=== PATIENT | female | born 1950 | race Two or more races ===

== ENCOUNTER 2020-01-19 16:03 | Emergency (ER) | payer SELFPAY ==
[2020-01-19] MEDS: HYDROmorphone 2 MG/ML SDV IVPUSH ONE (17:16)
[2020-01-19] MEDS: Ondansetron 4 MG/2 ML SDV IVPUSH ONE (17:19)
[2020-01-19] MEDS: Sodium Chloride 0.9% 1,000 ML IV SCH (17:27)
[2020-01-19] MEDS: Sodium Chloride 0.9% 10 ML Syringe FLUSH PRN (17:29)
[2020-01-19] MEDS: Iopamidol 755 Mg/ML 100 ML Bottle IV ONE (18:50)
[2020-01-19] MEDS: HYDROmorphone 2 MG/ML SDV IVPUSH STA (18:52)
--- NOTE | 2020-01-19 19:06 | EDM.PDOC ---
ED HPI GENERAL MEDICAL PROBLEM - General Stated Complaint: VAGINIAL ISSUIES Time Seen by Provider: 01/19/20 17:20 Source of Information: Reports: Patient History Limitations: Reports: No Limitations - History of Present Illness INITIAL COMMENTS - FREE TEXT/NARRATIVE: Patient presented to the ED because of severe abdominal pain, nausea but no vomiting. There is no fever or chills. The pain is sharp and cramping, 10/10. She had a vaginal prolapse surgery in [facility] sometime on the first week of December 2019 and 2 days post op she developed severe abdominal pain and nausea. She also mentioned that her urine and stool are mixed together and comes from her vaginal area. She then returned to the ED in [facility] and was evaluated and she was told that her surgery might have been complicated. ED ROS GENERAL - Review of Systems Review Of Systems: See Below Constitutional: Reports: No Symptoms HEENT: Reports: No Symptoms Respiratory: Reports: No Symptoms Cardiovascular: Reports: No Symptoms Endocrine: Reports: No Symptoms GI/Abdominal: Reports: Abdominal Pain : Reports: No Symptoms Musculoskeletal: Reports: No Symptoms Skin: Reports: No Symptoms Neurological: Reports: No Symptoms Psychiatric: Reports: No Symptoms ED EXAM, GI/ABD - Physical Exam Exam: See Below Exam Limited By: No Limitations General Appearance: Alert, No Apparent Distress Ears: Normal External Exam, Normal Canal Nose: Normal Inspection, Normal Mucosa Throat/Mouth: Normal Inspection, Normal Lips, Normal Teeth Head: Atraumatic, Normocephalic Neck: Normal Inspection, Supple, Non-Tender, Full Range of Motion Respiratory/Chest: No Respiratory Distress, Lungs Clear, Normal Breath Sounds Cardiovascular: Normal Peripheral Pulses, Regular Rate, Rhythm, No Edema, No Gallop GI/Abdominal Exam: Normal Bowel Sounds, Soft, Abnormal Bowel Sounds (diffusely tender), Other Back Exam: Normal Inspection, Full Range of Motion Course - Vital Signs Text/Narrative:: Labs/CT abd-pelvis was discussed with patient and her daughter and verbalized full understanding Surgery consult was done with Dr Royal who wants patient to be transferred to [facility] for further evaluation NS 1 L IV bolus Zofran 4 mg IV x1 Dilaudid 1 mg IV x2 doses Last Recorded V/S: Last Vital Signs Temp 36.7 C 01/19/20 16:30 Pulse 101 H 01/19/20 16:30 Resp 18 01/19/20 16:30 BP 130/76 01/19/20 16:30 Pulse Ox 100 01/19/20 16:30 - Orders/Labs/Meds Orders: Active Orders 24 hr Category Date Time Status Abdomen Pelvis w Cont [CT] Stat Exams 01/19/20 16:58 Taken CULTURE BLOOD [BC] Urgent Lab 01/19/20 16:25 Received CULTURE BLOOD [BC] Urgent Lab 01/19/20 16:25 Received Piperacillin/Tazobactam [Zosyn] 4.5 gm Med 01/19/20 18:52 Ordered Sodium Chloride 0.9% [Normal Saline] 100 ml IV NOW Sodium Chloride 0.9% [Normal Saline] 1,000 ml Med 01/19/20 17:15 Active IV ASDIRECTED Sodium Chloride 0.9% [Saline Flush] Med 01/19/20 16:58 Active 10 ml FLUSH ASDIRECTED PRN Blood Culture x2 Reflex Set [OM.PC] Urgent Oth 01/19/20 16:58 Ordered Saline Lock Insert [OM.PC] Routine Oth 01/19/20 16:58 Ordered Medication Orders Sodium Chloride (Normal Saline) 1,000 mls @ 999 mls/hr IV ASDIRECTED ISABELA Last Admin: 01/19/20 17:27 Dose: 999 mls/hr Documented by: NORMA Piperacillin Sod/Tazobactam (Sod 4.5 gm/ Sodium Chloride) 100 mls @ 200 mls/hr IV NOW STA Stop: 01/19/20 19:21 Sodium Chloride (Saline Flush) 10 ml FLUSH ASDIRECTED PRN PRN Reason: Keep Vein Open Last Admin: 01/19/20 17:29 Dose: 10 ml Documented by: NORMA Labs: Laboratory Tests 01/19/20 01/19/20 01/19/20 Range/Units 16:25 16:25 16:25 WBC 11.1 (4.5-12.0) X10-3/uL RBC 3.82 (3.23-5.20) x10(6)uL Hgb 10.8 L (11.5-15.5) g/dL Hct 33.0 (30.0-51.3) % MCV 86.4 (80-96) fL MCH 28.3 (27.7-33.6) pg MCHC 32.8 (32.2-35.4) g/dL RDW 13.4 (11.5-15.5) % Plt Count 493 H (125-369) X10(3)uL MPV 6.3 L (7.4-10.4) fL Neut % (Auto) 84.2 H (46-82) % Lymph % (Auto) 10.0 L (13-37) % Sauk % (Auto) 3.9 L (4-12) % Eos % (Auto) 2 (1.0-5.0) % Baso % (Auto) 0 (0-2) % Neut # (Auto) 9.4 H (1.6-8.3) # Lymph # (Auto) 1.1 (0.6-5.0) # Sauk # (Auto) 0.4 (0.0-1.3) # Eos # (Auto) 0.2 (0.0-0.8) # Baso # (Auto) 0.0 (0.0-0.2) # Sodium 136 (135-145) mmol/L Potassium 3.2 L (3.5-5.3) mmol/L Chloride 100 (100-110) mmol/L Carbon Dioxide 26 (21-32) mmol/L BUN 20 H (7-18) mg/dL Creatinine 1.1 H (0.55-1.02) mg/dL Est Cr Clr Drug Dosing TNP Estimated GFR (MDRD) 49 L (>60) BUN/Creatinine Ratio 18.2 (9-20) Glucose 104 (80-116) mg/dL Lactic Acid (0.4-2.0) mmol/L Calcium 9.1 (8.6-10.2) mg/dL Total Bilirubin 0.4 (0.1-1.3) mg/dL AST 23 (5-25) IU/L ALT 28 (12-36) U/L Alkaline Phosphatase 90 (56-112) IU/L Total Protein 7.9 (6.0-8.0) g/dL Albumin 3.5 (3.2-4.6) g/dL Globulin 4.4 g/dL Albumin/Globulin Ratio 0.8 Amylase 55 (25-115) U/L Lipase 132 (73-393) U/L SARS Virus RNA (PCR) (NEGATIVE) 01/19/20 01/19/20 Range/Units 16:25 17:45 WBC (4.5-12.0) X10-3/uL RBC (3.23-5.20) x10(6)uL Hgb (11.5-15.5) g/dL Hct (30.0-51.3) % MCV (80-96) fL MCH (27.7-33.6) pg MCHC (32.2-35.4) g/dL RDW (11.5-15.5) % Plt Count (125-369) X10(3)uL MPV (7.4-10.4) fL Neut % (Auto) (46-82) % Lymph % (Auto) (13-37) % Sauk % (Auto) (4-12) % Eos % (Auto) (1.0-5.0) % Baso % (Auto) (0-2) % Neut # (Auto) (1.6-8.3) # Lymph # (Auto) (0.6-5.0) # Sauk # (Auto) (0.0-1.3) # Eos # (Auto) (0.0-0.8) # Baso # (Auto) (0.0-0.2) # Sodium (135-145) mmol/L Potassium (3.5-5.3) mmol/L Chloride (100-110) mmol/L Carbon Dioxide (21-32) mmol/L BUN (7-18) mg/dL Creatinine (0.55-1.02) mg/dL Est Cr Clr Drug Dosing Estimated GFR (MDRD) (>60) BUN/Creatinine Ratio (9-20) Glucose (80-116) mg/dL Lactic Acid 1.4 (0.4-2.0) mmol/L Calcium (8.6-10.2) mg/dL Total Bilirubin (0.1-1.3) mg/dL AST (5-25) IU/L ALT (12-36) U/L Alkaline Phosphatase (56-112) IU/L Total Protein (6.0-8.0) g/dL Albumin (3.2-4.6) g/dL Globulin g/dL Albumin/Globulin Ratio Amylase (25-115) U/L Lipase (73-393) U/L SARS Virus RNA (PCR) Negative (NEGATIVE) Meds: Medications Generic Name Dose Route Start Last Admin Trade Name Freq PRN Reason Stop Dose Admin Sodium Chloride 1,000 mls @ 999 mls/hr 01/19/20 17:15 01/19/20 17:27 Normal Saline IV 999 mls/hr ASDIRECTED ISABELA Administration Piperacillin Sod/Tazobactam 100 mls @ 200 mls/hr 01/19/20 18:52 Sod 4.5 gm/ Sodium Chloride IV 01/19/20 19:21 NOW STA Sodium Chloride 10 ml 01/19/20 16:58 01/19/20 17:29 Saline Flush FLUSH 10 ml ASDIRECTED PRN Administration Keep Vein Open Discontinued Medications Generic Name Dose Route Start Last Admin Trade Name Freq PRN Reason Stop Dose Admin Hydromorphone HCl 1 mg 01/19/20 17:01 01/19/20 17:16 Dilaudid IVPUSH 01/19/20 17:02 1 mg ONETIME ONE Administration Hydromorphone HCl 1 mg 01/19/20 18:33 01/19/20 18:52 Dilaudid IVPUSH 01/19/20 18:34 1 mg NOW STA Administration Iopamidol 100 ml 01/19/20 17:48 Isovue-370 (76%) IV 01/19/20 17:49 . DIRECTED ONE Ondansetron HCl 4 mg 01/19/20 17:01 01/19/20 17:19 Zofran IVPUSH 01/19/20 17:02 4 mg ONETIME ONE Administration Departure - Departure Time of Disposition: 19:30 Disposition: Home, Self-Care 01 Condition: Good Clinical Impression: Abdominal pain - Discharge Information Referrals: PCP,None [Primary Care Provider] - Sepsis Event Note (ED) - Focused Exam Vital Signs: Vital Signs Temp Pulse Resp BP Pulse Ox 01/19/20 16:30 36.7 C 101 H 18 130/76 100 - My Orders Last 24 Hours: My Active Orders 01/19/20 16:25 CULTURE BLOOD [BC] Urgent CULTURE BLOOD [BC] Urgent 01/19/20 16:58 Abdomen Pelvis w Cont [CT] Stat Sodium Chloride 0.9% [Saline Flush] 10 ml FLUSH ASDIRECTED PRN Blood Culture x2 Reflex Set [OM.PC] Urgent Saline Lock Insert [OM.PC] Routine 01/19/20 17:15 Sodium Chloride 0.9% [Normal Saline] 1,000 ml IV ASDIRECTED 01/19/20 18:52 Piperacillin/Tazobactam [Zosyn] 4.5 gm Sodium Chloride 0.9% [Normal Saline] 100 ml IV NOW - Assessment/Plan Last 24 Hours: My Active Orders 01/19/20 16:25 CULTURE BLOOD [BC] Urgent CULTURE BLOOD [BC] Urgent 01/19/20 16:58 Abdomen Pelvis w Cont [CT] Stat Sodium Chloride 0.9% [Saline Flush] 10 ml FLUSH ASDIRECTED PRN Blood Culture x2 Reflex Set [OM.PC] Urgent Saline Lock Insert [OM.PC] Routine 01/19/20 17:15 Sodium Chloride 0.9% [Normal Saline] 1,000 ml IV ASDIRECTED 01/19/20 18:52 Piperacillin/Tazobactam [Zosyn] 4.5 gm Sodium Chloride 0.9% [Normal Saline] 100 ml IV NOW
--- NOTE | 2020-01-19 19:30 | CT ---
INDICATION: Lower abdominal/pelvic pain. CT ABDOMEN AND PELVIS WITH CONTRAST: Spiral 3.75 mm axial sections were obtained through the abdomen and pelvis with 100 mL Isovue-370 at 2 mL/second 01/19/20 - no comparisons. Total exam DLP was 651.76 mGy-cm. Lower lung henderson and pleural spaces visualized were unremarkable. There was question of some thickening of the gastric wall, could be on the basis of gastritis, but should be correlated clinically as it was not fully distended. The gallbladder is absent, compatible with history of its removal. The common bile duct is normal in caliber for a postcholecystectomy patient. The liver, spleen, adrenal glands, and pancreas appear to be normal. No retroperitoneal mass was identified. The kidneys appear abnormal with cortical scarring present bilaterally. Bilateral pigtail stents are noted in place, extending into a urostomy in this patient who is post bladder resection for bladder CA. The urostomy exits in the right lower quadrant anteriorly. There is a hernia extending from the urostomy site and fat stranding is present in that hernia, raising question of an inflammatory process - possible infection in the hernia. This should be correlated clinically. Additionally, there is a hernia including a loop of bowel at the pubic symphysis anteriorly in the midline and extending to the right. There appears to be a relative obstructive process due to this hernia with some impression on the loop of bowel in the hernia. The hernia sac opening is adjacent to and just cranial to the pubic symphysis. It extends over the pubic symphysis and inferior to the symphysis. There is an air-fluid level within it. The wall of the bowel loop was not grossly thickened. Metallic-appearing densities are noted in the bowel including in the left mid abdomen where what may represent intussusception is present, best imaged on coronal images 29-38, but also well visualized on axial images 42-50. The intussusception does not appear to be obstructive. Degenerative disk disease is noted at L5-S1 and possible L3-4. No abdominal aortic aneurysm was identified. There is some calcification in the abdominal aorta. The uterus is absent, compatible with history of its removal. IMPRESSION: 1. Fat stranding in a hernia at the right lower quadrant/pelvis at the site of urostomy. Infection would be a possibility - correlate clinically. 2. Midline and to the right hernia suprapubic including a loop of bowel with an air-fluid level. The possibility of a partially obstructive process of this small bowel loop is suggested. A few other air-fluid levels are noted in the more proximal small bowel loops in the lower pelvis, which appears to be secondary to the partially obstructive process of this hernia. 3. Possible intussusception in the left mid abdomen. 4. Post bladder resection. 5. Postcholecystectomy. 6. Renal cortical scarring with urostomy tubes in place. 7. Degenerative disk disease L3-4 and more definitely at L5-S1. 8. Posthysterectomy. Report was called to Dr. Hampton at 1845 hours. [facility]
[2020-01-19] MEDS ORDERED: Lidocaine 2% Jelly 30 ML Tube MUCMEM STA (19:41)
[2020-01-19] MEDS: Piperacillin/Tazobactam 4.5 GM in Sodium Chloride 0.9% 100 ML IV STA (20:01)
[2020-01-19] MEDS: Lidocaine 2% HCl 6 ML JEL.PF.APP ONE (20:52)
== END 2020-01-19 21:26 | disposition home or self-care (01) ==
LOC: FB.ED 16:03
DX: R10.84 Generalized abdominal pain (principal); Z20.828 Contact with and (suspected) exposure to other viral communicable diseases
CPT/HCPCS: 36415; 74177; 80053; 82150; 83605; 83690; 85025; 87040; 96365; 96375; 96376; 99284-25; A9270-GY; J1170; J2405; J2543; J7030; J7050; Q9967; U0002